=== PATIENT | male | born 1980 | race Two or more races ===

== ENCOUNTER 2023-12-28 14:43 | Emergency (ER) | payer OTHER ==
[~2023-12-28] VITALS: Ht 165.1 cm; Wt 72.6 kg
[2023-12-28] MEDS ORDERED: AMOX-CLAV 875-1 EAC1 PO (16:39)
== END 2023-12-28 16:53 | disposition home or self-care (01) ==
LOC: ER 14:45
DX: S61.411A Laceration without foreign body of right hand, initial encounter (principal); X58.XXXA Exposure to other specified factors, initial encounter; Y93.89 Activity, other specified; Y92.69 Other specified industrial and construction area as the place of occurrence of the external cause; Y99.8 Other external cause status

== ENCOUNTER 2024-01-05 15:47 | Emergency (ER) | payer OTHER ==
[~2024-01-05] VITALS: Ht 152.4 cm; Wt 77.1 kg
[~2024-01-05 15:47] MED LIST: AMOX-CLAV 875-1 EAC1 PO
[2024-01-05] MEDS ORDERED: INTESTINEX680 M1 PO ×2 (18:11→18:19)
[2024-01-05] MEDS ORDERED: CLEOCIN HCL300 MG PO ×2 (18:17→18:19)
== END 2024-01-05 18:34 | disposition home or self-care (01) ==
LOC: ER 15:47
DX: Z48.02 Encounter for removal of sutures (principal)